=== PATIENT | female | born 1960 | race Caucasian/White ===

== ENCOUNTER 2022-07-02 00:16 | Day surgery (SDC) | payer BC, SELFPAY ==
[2022-06-18 15:15] VITALS: BMI 16.2
--- NOTE | 2022-07-01 16:37 | PM.HPGS ---
History of Present Illness History of Present Illness Consent: Risks, benefits, and alternatives have been discussed and questions answered. Patient agrees to proceed with procedure. Chief complaint: hc colon polyps Narrative: Kalina Guevara is a 62 year old female who was referred for colon cancer screening. Three years ago she had 3 polyps removed. Review of Systems Review of Systems: All systems reviewed & are unremarkable except as noted in HPI and below PMFSH Past Medical History Medical History Brain tumor (~2006) Breast cancer Colon polyps History of breast cancer in female History of malignant neoplasm metastatic to brain Osteoporosis Osteoporosis Status post gamma knife treatment (~2007) Surgical History Surgical History History of appendectomy (~2008) History of bilateral mastectomy (~2002) History of removal of Port-a-Cath (~2021) Hx of craniotomy Family History Family History Father Malignant neoplasm of prostate Hypertension Heart disease Mother Breast cancer Heart disease Social History Social History Smoking status: Never smoker Second hand tobacco smoke exposure: No Alcohol intake: current Alcohol use details: holiday's Substance use: never Substance use type: does not use Lack of Transportation: No Lack of Food: Never True Current Housing: I Have Housing Concerned About Future Housing: No Difficulty Paying Gas/Electric Bills: No Difficulty Paying for Meds: No Currently Unemployed: No Education: Bachelor's Degree Difficulty w/ Childcare or Family Care: No Living arrangements: with family Occupation/Education: occupation Additional occupation/education comments: [employer] Gender identity (if verbalized by the patient): Female Spiritual care concerns: No Agree to blood products: Yes Meds Home Medications and Allergies Home Medications Medication Instructions Recorded Confirmed Type calcium carbonate 600 mg calcium 600 mg PO BID 06/09/22 06/18/22 History (1,500 mg) tablet (Calcium) cholecalciferol (vitamin D3) 25 25 mcg PO DAILY 06/09/22 06/18/22 History mcg (1,000 unit) capsule ibandronate 150 mg tablet 150 mg PO MONTHLY 06/09/22 06/18/22 History multivitamin (Multiple Vitamins 1 tablet PO DAILY 06/09/22 06/18/22 History tablet) Allergies Allergy/AdvReac Type Severity Reaction Status Date / Time erythromycin base Allergy Diarrhea Verified 06/18/22 15:16 Exam Const: General: alert Orientation/consciousness: patient oriented x3 Resp: Auscultation: clear to auscultation bilaterally Cardio: Rhythm: regular rhythm GI: GI Palp: Yes Soft to palpation and No Tenderness to palpation present (GI) Neuro: General: patient oriented x3 Assessment and Plan Assessment and plan (1) Colon cancer screening: Code(s): Z12.11 - Encounter for screening for malignant neoplasm of colon Status: Acute Assessment and Plan: Colonoscopy with possible biopsy or polypectomy or cautery or injection of substances.
[2022-07-02 08:00] VITALS: BP 131/78; PULSE 73; RESP 16; TEMP 36.2; O2SAT 100
[2022-07-02] MEDS: LACTATED RINGERS 1,000 ML 150 ML IV CONT (08:14)
[2022-07-02 08:55] VITALS: BP 101/60; PULSE 75; RESP 21; O2SAT 100
[2022-07-02 09:05] VITALS: BP 102/63; PULSE 72; RESP 20; O2SAT 99
[2022-07-02 09:15] VITALS: BP 114/67; PULSE 65; RESP 18; O2SAT 100
== END 2022-07-02 09:29 | disposition home or self-care (01) ==
PROVIDERS: PCP Internal Medicine; Visit Provider Internal Medicine Gastroenterology
PROC: 0DJD8ZZ Inspection of Lower Intestinal Tract, Via Natural or Artificial Opening Endoscopic (ICD-10-PCS; CPT 45378; principal; 2022-07-02 09:15)
DX: Z12.11 Encounter for screening for malignant neoplasm of colon (principal); K64.8 Other hemorrhoids; Z86.010 Personal history of colon polyps; M81.0 Age-related osteoporosis without current pathological fracture; Z85.3 Personal history of malignant neoplasm of breast; Z85.841 Personal history of malignant neoplasm of brain
CPT/HCPCS: 45378; J2704; J7120

== ENCOUNTER 2022-12-31 07:26 | Outpatient (CLI) | payer BC, SELFPAY | END 2022-12-31 07:27 | disposition home or self-care (01) | LOC: ANHBWCAUD 07:28 | PROVIDERS: PCP Internal Medicine; Visit Provider Otolaryngology | DX: H90.6 Mixed conductive and sensorineural hearing loss, bilateral (principal) | CPT/HCPCS: 92557; 92567 ==

== ENCOUNTER 2023-06-11 07:30 | Outpatient (CLI) | payer BC, SELFPAY ==
--- NOTE | ~2023-06-11 | DEXA_ITS ---
Bone Density Report Name: DANIEL RODRIGUEZ Age: 63 Sex: Female Ethnicity: White Date of : 1960 Indication: postmenopausal; screening for osteoporosis; height loss; cancer; Referring Provider: LUIS FELIPE LOPEZ Study: Bone densitometry was performed. Exam Date: June 11, 2023 Accession number: [id number] Bone Density: Region BMD T-score Z-score Classification AP Spine(L1-L4) 0.733 -2.9 -1.2 Osteoporosis Femoral Neck (Left) 0.714 -1.2 0.2 Osteopenia Total Hip (Left) 0.708 -1.9 -0.8 Osteopenia Femoral Neck (Right) 0.645 -1.8 -0.4 Osteopenia Total Hip (Right) 0.682 -2.1 -1.0 Osteopenia Total Hip Mean 0.695 -2.0 -0.9 Osteopenia World Health Organization criteria for BMD impression classify patients as: Normal (T-score at or above -1.0), Osteopenia (T-score between -1.0 and -2.5), or Osteoporosis (T-score at or below -2.5). 10-year Fracture Risk: FRAX not reported because: Some T-score for Spine Total or Hip Total or Femoral Neck at or below -2.5 Clinical Information Provided by Patient: Has used the following medications: Boniva (i.e. ibandronate), Vitamin D, Calcium Has the following medical conditions: Cancer Patient maximum height was 70.0 Menopause Age: 47 No regular weight bearing exercise Drinks caffeinated beverages Onset of menses at age 13 Number of children 2 Impression: The patient has osteoporosis, based on the Total Spine T-score. Discussion: INCREASED RISK OF FRACTURE. BONE DENSITY IS UNDESIRABLY LOW AT ONE OR MORE SKELETAL SITES, CONSISTENT WITH POSTMENOPAUSAL OSTEOPOROSIS. This patient's lowest T-score meets the World Health Organization's (WHO) criteria for osteoporosis at one or more sites (T-score -2.5 or below). In untreated patients, the risk of osteoporotic fracture increases approximately two-fold for each 1.0 SD decrease in T-score. Low bone density is not the only risk factor for fracture; also consider factors such as patient's age, frailty or poor health, risk of falling, risk of injury, previous osteoporotic fracture, family history of osteoporosis, cigarette smoking, low body weight, etc. Not everyone with low bone mineral density has osteoporosis; osteomalacia and other metabolic bone disorders should also be considered. Patients who have osteoporosis should be evaluated for specific diseases and conditions (secondary causes) that may cause or contribute to bone loss. The [place] [employer] Endocrinologists (AACE) and National Osteoporosis Foundation (NOF) recommend pharmacologic intervention for all postmenopausal women whose T-score is in this range. The patient should follow a healthful lifestyle (good nutrition with adequate calcium and vitamin D, and appropriate weight-bearing exercise). Follow-Up: Consider a repeat BMD and Vertebral Fracture
== END 2023-06-11 07:31 | disposition home or self-care (01) ==
PROVIDERS: PCP Internal Medicine; Visit Provider Nurse Practitioner
DX: M81.0 Age-related osteoporosis without current pathological fracture (principal)
CPT/HCPCS: 77080

== ENCOUNTER 2023-06-24 10:46 | Outpatient (CLI) | payer BC, SELFPAY ==
[2023-06-24 14:00] LABS: Magnesium 2.1 mg/dL (1.6-2.3); Phosphorus 3.7 mg/dL (2.5-4.5)
== END 2023-06-24 10:47 | disposition home or self-care (01) ==
LOC: ANHGOSHLAB 10:47
PROVIDERS: PCP Internal Medicine; Visit Provider Nurse Practitioner
DX: M81.0 Age-related osteoporosis without current pathological fracture (principal)
CPT/HCPCS: 36415; 83735; 84100

== ENCOUNTER 2024-02-11 19:02 | Emergency (ER) | payer BC, SELFPAY ==
--- NOTE | ~2024-02-11 | XR_ITS ---
XR hip RT 2V w AP pelvis Ordering provider: Milena Price APRN History: . pain, rt leg x 1 month, no injury . Comparison: None. FINDINGS: BONES: No acute fracture or dislocation. . Healed Fractures in the right superior and inferior pubic rami are noted. HIP JOINT SPACES: Slight narrowing of the left hip joint. SACROILIAC JOINT SPACES/LUMBAR SPINE: The sacroiliac joint spaces shows osteoarthritic changes.. Mild degenerative changes of the visualized lower lumbar spine. PUBIC SYMPHYSIS: Normal. SOFT TISSUES: Normal. IMPRESSION: No acute osseous abnormality pelvis and right hip. Old healed fractures in the right. Inferior pubic rami. Reviewed, dictated and finalized at location A.
[2024-02-11 19:17] VITALS: BP 125/66; PULSE 71; RESP 16; TEMP 36.1; O2SAT 100
--- NOTE | 2024-02-11 19:31 | ED.EXTPRO ---
HPI - Extremity Problem General Chief complaint: Extremity Problem,Nontraumatic Stated complaint: Right Leg Pain Time Seen by Provider: 02/11/24 19:30 Source: patient Mode of arrival: ambulatory Limitations: no limitations History of Present Illness HPI Narrative: 63-year-old female presented for complaint of pain to the right anterior hip. Onset over one month, no specific injury, but started after kneeling on the floor for an hour. Reports at times the pain radiates to inner thigh. Pain is constant and rates 7/10. Patient works at [employer] and stands all day. She took tylenol, and one dose of ibuprofen without much relief. denies numbness, tingling or weakness. History of cancer, osteoporosis, and right hip fracture. Patient is scheduled with PCP in 1 week for this complaint. Related Data Home Medications Medication Instructions Recorded Confirmed calcium carbonate (Calcium 600) 600 mg PO BID 06/09/22 02/11/24 cholecalciferol (vitamin D3) 25 25 mcg PO DAILY 06/09/22 02/11/24 mcg (1,000 unit) capsule multivitamin (Multiple Vitamins 1 tablet PO DAILY 06/09/22 02/11/24 tablet) zoledronic acid 5 mg/100 mL in See Rx Instructions .Route .COMPLEX 02/11/24 02/11/24 mannitol 5 %-water intravenous piggybck (Reclast) Allergies Allergy/AdvReac Type Severity Reaction Status Date / Time erythromycin base Allergy Diarrhea Verified 02/11/24 19:23 Review of Systems Review of Systems: CONSTITUTIONAL: Denies body aches, fever, chills CARDIOVASCULAR: Denies chest pain, palpitations, or edema. RESPIRATORY: Denies cough or dyspnea. GASTROINTESTINAL: Denies abdominal pain, nausea, vomiting, or diarrhea. SKIN: Denies rash, itching, or wounds. MUSCULOSKELETAL: Reports right anterior hip pain NEUROLOGIC: Denies headache, numbness, tingling, or weakness. All systems reviewed & are unremarkable except as noted in HPI and below PMFSH Past Medical History Medical History Brain tumor (~2006) Breast cancer Colon polyps History of breast cancer in female History of malignant neoplasm metastatic to brain Osteoporosis Osteoporosis Status post gamma knife treatment (~2007) Surgical History Surgical History History of appendectomy (~2008) History of bilateral mastectomy (~2002) History of removal of Port-a-Cath (~2021) Hx of craniotomy Family History Family History Father Malignant neoplasm of prostate Hypertension Heart disease Mother Breast cancer Heart disease Social History Social History Social History: Caffeine-2 cups daily Smoking status: Never smoker Second hand tobacco smoke exposure: No Alcohol intake: current Alcohol use details: holiday's Substance use: never Substance use type: does not use Do You Feel Safe in your Home?: Yes Lack of Transportation: No Lack of Food: Never True Current Housing: I Have Housing Concerned About Future Housing: No Difficulty Paying Gas/Electric Bills: No Difficulty Paying for Meds: No Currently Unemployed: No Education: Bachelor's Degree Difficulty w/ Childcare or Family Care: No Living arrangements: with family Occupation/Education: occupation Additional occupation/education comments: [employer] Gender identity (if verbalized by the patient): Female Spiritual care concerns: No Agree to blood products: Yes Comments At time of signature, I have reviewed and agree with nursing past medical, surgical, social and family history unless otherwise noted. Please see nursing chart for further information. There is no relevant family history pertinent to the presenting complaint Exam Narrative: GENERAL: Well-appearing CHEST: Speaks in full sentences. No respiratory distress. HEART: Re
== END 2024-02-11 20:24 | disposition home or self-care (01) ==
PROVIDERS: Emergency Provider Nurse Practitioner Family; PCP Internal Medicine
DX: M25.551 Pain in right hip (principal); M81.0 Age-related osteoporosis without current pathological fracture; Z85.3 Personal history of malignant neoplasm of breast; Z90.13 Acquired absence of bilateral breasts and nipples; Z85.841 Personal history of malignant neoplasm of brain
CPT/HCPCS: 73502; 99213; G0463

== ENCOUNTER 2024-03-16 12:21 | Outpatient (CLI) | payer BC, SELFPAY ==
--- NOTE | ~2024-03-16 | MR_ITS ---
EXAMINATION: MR lumbar spine wo/w con DATE: 03/16/2024 13:37 INDICATION: Radiculopathy, lumbar region. TECHNIQUE: Magnetic resonance imaging (MRI) of the lumbar spine was performed without and with 11 mL MultiHance intravenous contrast. COMPARISON: None FINDINGS: Bone alignment is normal. There is mild chronic anterior wedging of T12 and L1 vertebral scott dies, likely physiologic. There is mildly decreased disc height at L5-S1. The distal spinal cord sign al intensity is normal. The conus medullaris is at L1. 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 The following di sc levels are specifically discussed: L1-L2: The disc does not extend beyond the endplate margin. There is moderate right and mild left fac et joint osteoarthritis. There is no neural foraminal stenosis. There is no central canal stenosis. L2-L3: The disc is mildly bulging. There is mild bilateral facet joint osteoarthritis. There is mild bilateral neural foraminal stenosis. There is no central canal stenosis. L3-L4: The disc is mildly bulging. There is mild bilateral facet joint osteoarthritis. There is mild bilateral neural foraminal stenosis. There is no central canal stenosis. L4-L5: The disc is mildly bulging. There is mild bilateral facet joint osteoarthritis. There is mild left neural foraminal stenosis. There is mild central canal stenosis. L5-S1: There is a central protrusion with annular fissure. There is moderate bilateral facet joint os teoarthritis. There is no neural foraminal stenosis. There is mild central canal stenosis. IMPRESSION: 1. Mild lumbar spondylosis. Reviewed, dictated and finalized at location A. IMPRESSION: 1. Mild lumbar spondylosis.
== END 2024-03-16 12:22 | disposition home or self-care (01) ==
LOC: ANHIMG 12:30
PROVIDERS: PCP Internal Medicine; Visit Provider Nurse Practitioner
DX: M47.816 Spondylosis without myelopathy or radiculopathy, lumbar region (principal); M54.16 Radiculopathy, lumbar region
CPT/HCPCS: 72158; A9577

== ENCOUNTER 2025-03-22 07:49 | Outpatient (CLI) | payer BC, SELFPAY ==
--- OUTSIDE RECORDS SUMMARY | 2025-03-22 07:53 | XMS_ITS | Encounter Summary ---
Author Organization [facility] Address [facility]ly [facility] [place] [address] Care Team Providers Care Manager Family Name Role Phone Earnest Rodriguez MD Primary Care Provider [phone] Encounter Details Date Type Department Care Team (Latest Contact Info) Description 08/02/2021 JackBet Message Enc [facility] Medical Group Multispecialty Care - [place] [address] [place] [address] [address] [place] [address] [place] [address] [place] [address] [address] [place], [place] [id number] Leatha(?) called from your office. Social History Tobacco Use Types Packs/Day Years Used Date Smoking Tobacco: Never Smokeless Tobacco: Never Comments:counseled by Dr Shaniqua mccann Alcohol Use Standard Drinks/Week Comments Never 0 (1 standard drink = 0.6 oz pur e alcohol) PHQ-2 Answer Date Recorded PHQ-2 Score - If the patient scores above 3, please move on to questions 3-9 0 07/31/2021 Comments No Sex and Gender Information Value Date Recorded Sex Assigned at Not on file Legal Sex Female 2:12 PM COMPENSATION AGENT Gender Identity Female 07/30/2021 11:15 AM COMPENSATION AGENT Sexual Orientation Choose not to disclose 2021 11:15 AM COMPENSATION AGENT COVID-19 Exposure Response Date Recorded In the last 10 days, have yo u been in contact with someone who was confirmed or suspected to have Coronavirus/COVID-19? No / Unsure 07/30/2021 10:18 AM COMPENSATION AGENT documented as of this encounter Plan of Treatment Not on file documented as of this encounter Visit Diagnoses Not on filedocumented in this encounter Additional Health Concerns Assessment Noted Time PHQ-9 Depression Total Score: 0 08/01/19 22 8:39 AM COMPENSATION AGENT documented as of this encounter Care Teams Manager Family Relationship Specialty Start Date End Date Earnest Rodriguez MD [address] [facility] [address] [place] [address] PCP - General INTERNAL MEDICINE 07/31/21 documented as of this encounter
--- OUTSIDE RECORDS SUMMARY | 2025-03-22 07:53 | XMS_ITS | Encounter Summary ---
Author Organization [facility] Address [address] [place] [address] Care Team Providers Care Wound Specialist Name Role Phone Earnest Rodriguez MD Primary Care Provider [phone] Encounter Details Date Type Department Care Team (Latest Contact Info) Description 08/03/2021 Staplest Message Enc [facility] Medical Group Multispecialty Care - [place] [address] [place] [address] [address] [place], [place] [id number] [place] [address] [place] [address] [address] [place], [place] [id number] ECHO and Bone Density procedures Social History Tobacco Use Types Packs/Day Years [...] on file Legal Sex Female 2:12 PM SETTLEMENT AGENT Gender Identity Female 07/30/2021 11:15 AM SETTLEMENT AGENT Sexual Orientation Choose not to disclose 2021 11:15 AM SETTLEMENT AGENT COVID-19 Exposure Response Date Recorded In the last 10 days, have yo u been in contact with someone who was confirmed or suspected to have Coronavirus/COVID-19? No / Unsure 07/30/2021 10:18 AM SETTLEMENT AGENT documented as of this encounter Plan of Treatment Not on file documented as of this encounter Visit Diagnoses Not on filedocumented in this encounter Additional Health Concerns Assessment Noted Time PHQ-9 Depression Total Score: 0 08/01/19 8:39 AM SETTLEMENT AGENT documented as of this encounter Care Teams Wound Specialist Relationship Specialty Start Date End Date Earnest Rodriguez MD [address] [address] PCP - General INTERNAL MEDICINE 07/31/21 documented as of this encounter
--- OUTSIDE RECORDS SUMMARY | 2025-03-22 07:53 | XMS_ITS | Encounter Summary ---
Author Organization [facility] Address [address] [place] [address] Care Team Providers Care Wait Staff Name Role Phone Earnest Rodriguez MD Primary Care Provider [phone] Encounter Details Date Type Department Care Team (Latest Contact Info) Description 08/12/2021 Gladitoodhart Message Enc [facility] Medical Group Multispecialty Care - [place] [address] [place] [address] [address] [place], [place] [id number] [place] [address] [place] [address] [address] [place], [place] [phone] Colonoscopy update Social History Tobacco Use Types Packs/Day Years [...] on file Legal Sex Female 2:12 PM GROCERY CLERK CHECKING Gender Identity Female 07/30/2021 11:15 AM GROCERY CLERK CHECKING Sexual Orientation Choose not to disclose 2021 11:15 AM GROCERY CLERK CHECKING COVID-19 Exposure Response Date Recorded In the last 10 days, have yo u been in contact with someone who was confirmed or suspected to have Coronavirus/COVID-19? No / Unsure 07/30/2021 10:18 AM GROCERY CLERK CHECKING documented as of this encounter Plan of Treatment Not on file documented as of this encounter Visit Diagnoses Not on filedocumented in this encounter Additional Health Concerns Assessment Noted Time PHQ-9 Depression Total Score: 0 08/01/19 8:39 AM GROCERY CLERK CHECKING documented as of this encounter Care Teams Wait Staff Relationship Specialty Start Date End Date Earnest Rodriguez MD [address] [facility] [address] [place] [address] PCP - General INTERNAL MEDICINE 07/31/21 documented as of this encounter
--- OUTSIDE RECORDS SUMMARY | 2025-03-22 07:54 | XMS_ITS | Encounter Summary ---
Author Organization [facility] Address [address] [place] [address] Care Team Providers Care Charging Manipulator Name Role Phone Earnest Rodriguez MD Primary Care Provider [phone] Encounter Details Date Type Department Care Team (Latest Contact Info) Description 09/02/2021 Trendalyticst Message Enc [facility] Medical Group Multispecialty Care - [place] [address] [place] [address] [address] [place], [place] [phone] [place] [address] [place] [address] [address] [place], [place] [id number] refill for ibandronate sodium 150 mg tab Social History Tobacco Use Types Packs/Day Years [...] on file Legal Sex Female 2:12 PM EVENT MARKETING INTERN Gender Identity Female 07/30/2021 11:15 AM EVENT MARKETING INTERN Sexual Orientation Choose not to disclose 2021 11:15 AM EVENT MARKETING INTERN documented as of this encounter Plan of Treatment Not on file documented as of this encounter Visit Diagnoses Not on filedocumented in this encounter Additional Health Concerns Assessment Noted Time PHQ-9 Depression Total Score: 0 08/01/19 22 8:39 AM EVENT MARKETING INTERN documented as of this encounter Care Teams Charging Manipulator Relationship Specialty Start Date End Date Earnest Rodriguez MD [address] [address] PCP - General INTERNAL MEDICINE 07/31/21 documented as of this encounter
--- OUTSIDE RECORDS SUMMARY | 2025-03-22 07:54 | XMS_ITS | Encounter Summary ---
Author Organization [facility] Address [address] [place] [address] Care Team Providers Care Landscape Specialist Name Role Phone Earnest Rodriguez MD Primary Care Provider [phone] Encounter Details Date Type Department Care Team (Late st Contact Info) Description 08/06/2021 MyChart Message Enc [facility] Medical Group Multispecialty Care - [place] [address] [place] [address] [address] [place], [place] [phone] [place] [address] [place] [address] [address] [place], [place] [id number] Gastro referral Social History Tobacco Use Types Packs/Day Years [...] on file Legal Sex Female 2:12 PM GROUP SUPERVISOR YARD Gender Identity Female 07/30/2021 11:15 AM GROUP SUPERVISOR YARD Sexual Orientation Choose not to disclose 2021 11:15 AM GROUP SUPERVISOR YARD COVID-19 Exposure Response Date Recorded In the last 10 days, have yo u been in contact with someone who was confirmed or suspected to have Coronavirus/COVID-19? No / Unsure 07/30/2021 10:18 AM GROUP SUPERVISOR YARD documented as of this encounter Plan of Treatment Not on file documented as of this encounter Visit Diagnoses Not on filedocumented in this encounter Additional Health Concerns Assessment Noted Time PHQ-9 Depression Total Score: 0 08/01/19 8:39 AM GROUP SUPERVISOR YARD documented as of this encounter Care Teams Landscape Specialist Relationship Specialty Start Date End Date Earnest Rodriguez MD [address] [facility] [address] [place] [address] PCP - General INTERNAL MEDICINE 07/31/21 documented as of this encounter
--- OUTSIDE RECORDS SUMMARY | 2025-03-22 07:54 | XMS_ITS ---
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 Status post chemo and radiation therapy. Currently in remission. Close follow-up with oncology. 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 Heart failure is improving with treatment. NYHA Class I. Continue current treatment regimen. Heart failure will be reassessed in 6 months. Her cardiac MRI showed mild LV globyal hypokinesis. She is on cardioprotective medication. She is asymptomatic at this time. Would recommend repeat MRI if she becomes symptomatic or if her biomarkers (NT PRO and Trop) trend up. Due to her implants, cardiac echo is inferior as GLS was difficult to obtain. GLS is an early indicator of LV dysfunction. Assessment & Plan (12/16/2017 9:49 AM CDT): Overall she is asymptomatic from a cardiac standpoint but she does have a dilated LV that likely represents cumulative damage from anthracycline and trastuzumab exposure. - we will start lisinopril 5mg today and check a BMP in 2 weks - we will check troponin, NTproBNP, and lipid panel today - we will check a cardiac MRI, due to limitations with TTE - she should have an EKG checked at her next appointment in [facility], for a baseline - we will plan to monitor serial biomarkers, and re-image with cardiac MRI or TTE pending changes in levels as well as symptoms Mitral valve prolapse 12/16/2017 Assessment & Plan (07/26/2018 9:53 AM PROGRAM ATTENDANT): Continues to remain asymptomatic. Repeat a cardiac MRI per above. Assessment & Plan (12/16/2017 9:49 AM CDT): We recommended that she start on aspiring 81mg daily Encounter for chemotherapy management 04/01/2017 Malignant neoplasm of right breast 03/04/2017 Cancer Staging:Clinical:Stage IV(TX, NX, M1) - Signed by Gretchen Foss MD on 11/17/2017 Assessment & Plan (07/26/2018 9:51 AM PROGRAM ATTENDANT): Continues herception every 21 days. Assessment & Plan (12/16/2017 9:49 AM CDT): She continues on trastuzumab every 3 weeks (since 2006) with no evidence of disease recurrence. Malignant neoplasm metastatic to brain 7 Current Treatment and Therapy Plans No current plan information found. Past Treatment and Therapy Plans Line Care Plan Name Start Date Discontinue Date Treatment Medications Discontinue Reason Plan Provider IV MAINTENANCE THERAPY PLAN 01/12/2019 08/04/2023 No medications scheduled. Automatic discontinuation of dormant plans Gretchen Foss MD Oncology Chemotherapy Treatment Plan Name Start Date Discontinue Date Treatment Medications Discontinue Reason Plan Provider Cycles Trastuzumab 21 Day Cycles; Transitioned to SC trastuzumab-hya luronidase-oysk C44 (Recurrent / Metastatic) - Breast 7 11/14/2020 trastuzumab (HERCEPTIN)tra stuzumab (HERCEPTIN) IVPBtrastuzuma b-hyaluronidas e-oysk (HERCEPTAN HYLECTA)trastu zumab-hyaluron idase-oysk (HERCEPTIN-HYL ECTA) Toxicity/Compl ication Gretchen Foss MD 55 of 60 cycles started Specialty Infusion Treatment Plan Name Start Date Discontinue Date Treatment Medications Discontinue Reason Plan Provider IV MAINTENANCE THERAPY PLAN 11/18/2017 04/01/2023 No medications scheduled. Automatic discontinuation of dormant plans Gretchen Foss MD Lifetime Dose Tracking * Chemical Lifetime Dose Automatic Entry Manual Entr y Fluoro Time 0.9 minutes 0.9 minutes 0 minutes Air kerma at the reference point (Ka,r) 1 mGy 1 mGy 0 mGy DLP 439 mGycm 439 mGycm 0 mGycm Resolved Problems Problem Noted Date Diagnosed Date Resolved Date Breast cancer 07/31/2021 05/31/2024 Overview (07/22/2023): Last Assessment & Plan: -History of breast cancer status post bilateral mastectomy. Stage IV (TX, NX, M1). - Currently in remission. Status post therapy done in 2002; currently has breast implants. No changes to the breast at this time. Will be following up with oncology. Malignant neoplasm metastatic to brain 08/31/2018 05/31/2024
--- OUTSIDE RECORDS SUMMARY | 2025-03-22 07:54 | XMS_ITS | Clinical Summary ---
Author Organization [facility] Address [address] Osorio: Katerine Prelude ADT JOSIE GARCIA [address] Care Team Providers Care Metrology Technician Name Role Phone Unavailable Primary Care Provider Unavailabl e Allergies Active Allergy Reactions Criticality Noted Date Comments Erythromycin Unknown 10/06/2021 Medications ibandronate (BONIVA) 150 mg tablet TAKE ONE TABLET BY MOUTH ONCE A MONTH WITH 8 OZ OF WATER. TAKE 60 MINUTES BEFORE ANY OTHER MEDICATION OR FOOD IN AN UPRIGHT POSITION. 1 Tablet 6 06/12/2022 3:18 PM ELEVATOR ERECTOR 2 Active ibandronate (BONIVA) 150 mg tablet TAKE ONE TABLET BY MOUTH ONCE A MONTH. TAKE WITH 8 OZ OF WATER 60 MINUTES BEFORE ANY OTHER MEDICATION OR FOOD. TAKE WHILE IN AN UPRIGHT POSITION. 1 Tablet 6 02/12/2022 12:41 PM CDT 2 Active amoxicillin (AMOXIL) 875 mg tablet Take 1 tablet (875 mg total) by mouth 2 (two) times a day for 7 days 14 Tablet 07/18/2022 4:25 PM ELEVATOR ERECTOR 3 Active ofloxacin (FLOXIN) 0.3 % Drops Administer 5 drops into each ear 2 (two) times a day for 7 days. 10 mL 07/22/2023 2:23 PM ELEVATOR ERECTOR 4 Active methylPREDNISol one (MEDROL DOSPACK) 4 mg Tablets, Dose Pack TAKE DIRECTED ON PACKAGE. 21 Each 02/17/2024 9:35 AM CDT 4 Active cyclobenzaprine (FLEXERIL) 10 mg tablet Take 1 Tablet (10 mg) by mouth 2 times daily as needed for muscle spasms. 20 Tablet 4 Active Encounters Date Type Department Care Team Description 01/31/2025 External Device Data [facility] ABSTRACTION Provider, Abstract 12/28/2024 External Device Data [facility] ABSTRACTION Provider, Abstract from Last 3 Months Immunizations Immunization Administration Dates Next Due INFLUENZA VACCINE QUADRIVALENT 6 MOS UP PF IM Social History Tobacco Use Types Packs/Day Years Used Date Smoking Tobacco: Never Assessed Comments Unknown Sex and Gender Information Value Date Recorded Sex Assigned at Not on file Legal Sex Female 3:27 PM CDT Gender Identity Not on file Sexual Orientation Not on file Plan of Treatment Health Maintenance Due Date Last Done Comments DTAP/TDAP/TD VACCINES (1 - Tdap) 1979 HPV/Cotest (21-29) 1981 CERVICAL CANCER SCREENING 1990 HPV/Cotest (30-65) 1990 PAP SMEAR 1990 BREAST CANCER SCREENING 2000 COLORECTAL SCREENING 2005 Colorectal Cancer Screening 2005 FIT-DNA Q 3 years 2005 FIT/FOBT Q 1 year 2005 Flex Sig/CT Colonography Q 5 years 2005 ZOSTER VACCINE (1 of 2) 2010 INFLUENZA VACCINE (#1) 2024 02/19/2023 RSV VACCINE (60+ or ) (1 - 1-dose 75+ series) 2035 Insurance RX [facility] [employer] (INTERNAL) [facility]
--- OUTSIDE RECORDS SUMMARY | 2025-03-22 07:54 | XMS_ITS | Encounter Summary ---
Author Organization [facility] Address [address] [place] [address] Phone Care Team Providers Care Derrick Follower Name Role Phone Flavio Munson DO Primary Care Provider Encounter Details Date Type Department Care Team (Late st Contact Info) Description 01/30/2025 Results Follow-Up [facility] [address] [place] [address] Evelyn Santana MD [address] [place], [place] [id number] Phosphorus, Comprehensive metabolic panel, Vitamin D 25 hydroxy, eGFR Social History Tobacco Use Types Packs/Day Years Used Date Smoking Tobacco: Never Passive Smoke Exposure: Past Smokeless Tobacco: Never Alcohol Use Standard Drinks/Week Comments Never 0 (1 standard drink = 0.6 oz pur e alcohol) AUDIT-C Answer Date Recorded Q1: How often do you have a drink containing alc ohol? Never 05/30/2020 Average Number of Drinks Not on file 021 Frequency of Binge Drinking Not on file 10/2020 Comments No Sex and Gender Information Value Date Recorded Sex Assigned at Not on file Legal Sex Female 10:07 AM BUILDINGS AND GROUNDS SUPERINTENDENT Gender Identity Not on file Sexual Orientation Not on file documented as of this encounter Plan of Treatment Not on file documented as of this encounter Visit Diagnoses Not on filedocumented in this encounter Care Teams Derrick Follower Relationship Specialty Start Date End Date Flavio Munson DO PCP - General Internal Medicine 08/31/23 documented as of this encounter
--- OUTSIDE RECORDS SUMMARY | 2025-03-22 07:54 | XMS_ITS | Encounter Summary ---
Author Organization [facility] Address [address] [place] [address] Care Team Providers Care Theology Teacher Name Role Phone Earnest Rodriguez MD Primary Care Provider [phone] Encounter Details Date Type Department Care Team (Latest Contact Info) Description 09/06/2021 NextVRt Message Enc [facility] - [place] [address] [place] [address] [address] [place], [place] [id number] [place] [address] [place] [address] [address] [place], [place] [id number] hemo-cyte and boniva Social History Tobacco Use Types Packs/Day Years [...] on file Legal Sex Female 2:12 PM XRAY TECH Gender Identity Female 07/30/2021 11:15 AM XRAY TECH Sexual Orientation Choose not to disclose 2021 11:15 AM XRAY TECH documented as of this encounter Plan of Treatment Not on file documented as of this encounter Visit Diagnoses Not on filedocumented in this encounter Additional Health Concerns Assessment Noted Time PHQ-9 Depression Total Score: 0 08/01/19 22 8:39 AM XRAY TECH documented as of this encounter Care Teams Theology Teacher Relationship Specialty Start Date End Date Earnest Rodriguez MD [address] [facility] [address] [place] [address] PCP - General INTERNAL MEDICINE 07/31/21 documented as of this encounter
--- OUTSIDE RECORDS SUMMARY | 2025-03-22 07:54 | XMS_ITS | Encounter Summary ---
Author Organization [facility] Address [address] [place] [address] Care Team Providers Care Regional Psychiatric Director Name Role Phone Earnest Rodriguez MD Primary Care Provider [phone] Encounter Details Date Type Department Care Team (Latest Contact Info) Description 08/18/2021 Guang Lian Shi Dait Message Enc [facility] Multispecial[facility] - [place] [address] [place] [address] [address] [place] [address] [place] [address] [place] [address] [address] [place], [place] [id number] Updating you on many things... Social History Tobacco Use Types Packs/Day Years [...] on file Legal Sex Female 2:12 PM MEDICAL RECORD CODER Gender Identity Female 07/30/2021 11:15 AM MEDICAL RECORD CODER Sexual Orientation Choose not to disclose 2021 11:15 AM MEDICAL RECORD CODER COVID-19 Exposure Response Date Recorded In the last 10 days, have yo u been in contact with someone who was confirmed or suspected to have Coronavirus/COVID-19? No / Unsure 07/30/2021 10:18 AM MEDICAL RECORD CODER documented as of this encounter Plan of Treatment Not on file documented as of this encounter Visit Diagnoses Not on filedocumented in this encounter Additional Health Concerns Assessment Noted Time PHQ-9 Depression Total Score: 0 08/01/19 22 8:39 AM MEDICAL RECORD CODER documented as of this encounter Care Teams Regional Psychiatric Director Relationship Specialty Start Date End Date Earnest Rodriguez MD [address] [address] PCP - General INTERNAL MEDICINE 07/31/21 documented as of this encounter
--- OUTSIDE RECORDS SUMMARY | 2025-03-22 07:54 | XMS_ITS | Encounter Summary ---
Author Organization [facility] Address [address] [place] [address] Care Team Providers Care Semiconductor Dies Loader Name Role Phone Earnest Rodriguez MD Primary Care Provider [phone] Encounter Details Date Type Department Care Team (Latest Contact Info) Description 08/23/2021 Bruin Brake Cableshart Message Enc [facility] Multispecialty Care - [place] [address] [place] [address] [address] [place], [place] [phone] [place] [address] [place] [address] [address] [place], [place] [phone] second booster shot Social History Tobacco Use Types Packs/Day Years [...] on file Legal Sex Female 2:12 PM FLARER Gender Identity Female 07/30/2021 11:15 AM FLARER Sexual Orientation Choose not to disclose 2021 11:15 AM FLARER COVID-19 Exposure Response Date Recorded In the last 10 days, have yo u been in contact with someone who was confirmed or suspected to have Coronavirus/COVID-19? No / Unsure 07/30/2021 10:18 AM FLARER documented as of this encounter Plan of Treatment Not on file documented as of this encounter Visit Diagnoses Not on filedocumented in this encounter Additional Health Concerns Assessment Noted Time PHQ-9 Depression Total Score: 0 08/01/19 8:39 AM FLARER documented as of this encounter Care Teams Semiconductor Dies Loader Relationship Specialty Start Date End Date Earnest Rodriguez MD [address] [facility] [address] [place] [address] PCP - General INTERNAL MEDICINE 07/31/21 documented as of this encounter
--- OUTSIDE RECORDS SUMMARY | 2025-03-22 07:54 | XMS_ITS | Clinical Summary ---
Author Organization [facility] Address [facility] [place] [address] Care Team Providers Care Human Geography Instructor Name Role Phone Earnest Rodriguez MD Primary Care Provider [phone] Allergies Active Allergy Reactions Criticality Noted Date Comments Erythromycin Diarrhea,GI Upset Low 08/24/1999 Medications Multiple Vitamins-Mineral s (DAILY MULTI VITAMIN/MINERALS OR) 7 Active ibandronate 150 MG tabletIndication s:Age-related osteoporosis without current pathological fracture ibandronate 150 mg tablet TAKE ONE TABLET BY MOUTH ONCE A MONTH. Take with 8 oz of water 60 minutes before any other medication or food in an upright position. 1 tablet 6 2 Active vitamin D3, cholecalciferol, (VITAMIN D) 1000 UNIT Tab tabletIndication s:Age-related osteoporosis without current pathological fracture,Osteope alfredo of necks of both femurs Take 2 tablets (2,000 Units total) by mouth daily. 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 Status post chemo and radiation therapy. Currently in remission. Close follow-up with oncology. Breast cancer 07/31/2021 Assessment & Plan (07/31/2021 1:47 PM REPEATER OPERATOR): -History of breast cancer status post bilateral mastectomy. Stage IV (TX, NX, M1). - Currently in remission. Status post therapy done in 2002; currently has breast implants. No changes to the breast at this time. Will be following up with oncology. Fracture of right superior r im of pubis with routine healing 06/20/2019 Mixed hearing loss, bilateral 02/04/2019 Perforation of both tympanic membranes 9 Cardiomyopathy 12/16/2017 Assessment & Plan (07/31/2021 1:45 PM REPEATER OPERATOR): appears euvolemic. No longer on irbesartan per patient. Getting an echocardiogram but obviously would benefit from a cardiac MRI for which patient will get done with oncology at her next appointment. Mitral valve prolapse 12/16/2017 Overview (07/31/2021): Last Assessment & Plan: Continues to remain asymptomatic. Repeat a cardiac MRI per above. Immunizations Immunization Administration Dates Next Due PFIZER COVID-19 (ORIGINAL FO RMULATION, PURPLE CAP) mRNA, LNP-S, PF, 30 MCG/0.3 ML DOSE 08/21/2021 Pneumococcal (Pneumovax 23) 11/13/2021 Tdap (Adacel) 10/30/2021 Family History Medical History Relation Comments Cancer Father Prostate Cancer Mother breast Relation Status Comments Father Mother Social History Tobacco Use Types Packs/Day Years Used Date Smoking Tobacco: Never Smokeless Tobacco: Never Tobacco Cessation:Counseling Given: Yes Comments:counseled by Dr Rodriguez Alcohol Use Standard Drinks/Week Comments Never 0 (1 standard drink = 0.6 oz pur e alcohol) PHQ-2 Answer Date Recorded PHQ-2 Score - If the patient scores above 3, please move on to questions 3-9 0 07/31/2021 Comments No Sex and Gender Information Value Date Recorded Sex Assigned at Not on file Legal Sex Female 2:12 PM REPEATER OPERATOR Gender Identity Female 07/30/2021 11:15 AM REPEATER OPERATOR Sexual Orientation Choose not to disclose 2021 11:15 AM REPEATER OPERATOR Last Filed Vital Signs Vital Sign Reading Time Taken Comments Blood Pressure 120/68 12/13/2021 10:03 AM CDT Pulse 67 12/13/2021 10:03 AM CDT Temperature 36.3 C (97.4 F) 12/13/2021 10:03 AM CDT Respiratory Rate 18 12/13/2021 10:0 3 AM CDT Oxygen Saturation 99% 12/13/2021 10: 03 AM CDT Inhaled Oxygen Concentration - - Weight 49.8 kg (109 lb 12.8 oz) 022 10:03 AM CDT Height 176.5 cm (5' 9.5) 12/13/2021 10 :03 AM CDT Body Mass Index 15.98 12/13/2021 10:03 AM CDT Plan of Treatment Health Maintenance Due Date Last Done Comments Zoster Vaccines (1 of 2) 2010 RSV Immunization or 60+ Years (1 - Risk 60-74 years 1-dose series) 2020 Annual Physical 07/31/2022 07/31/2021 Pneumococcal Vaccine: 50+ Years (2 of 2 - PCV) 11/13/2022 11/13/2021 PHQ-2 (Physician [place]) 05/25/2024 Cervical Cancer Screening Pap Smear (Age 30 to 64) Every 3 Years 11/13/2024 11/13/2021 COVID-19 Vaccine ( season) 2025 03/11/2023, 08/21/2021, 03/19/2021, Additional history exists Influenza Adult (#1) 2025 02/19/2023, 02/08/2020, 03/01/2019 Cervical Cancer Screening Pap with HPV Testing (Age 30 to 64) Every 5 Years 11/13/2026 11/13/2021 Cervical Cancer Screening with HPV 11/13/2026 Colorectal Cancer Screening Colonoscopy (10 Years) 06/23/2028 06/23/2018 DTaP, Tdap and Td Vaccines (2 - Td or Tdap) 10/31/2031 10/30/2021 Hepatitis C Completed 07/31/2021 Hepatitis A Vaccines Aged Out No long er eligible based on patient's age to complete this topic Meningococcal B Vaccine Aged Out No l onger eligible based on patient's age to complete this topic Meningococcal Vaccine Aged Out No bryan elo eligible based on patient's age to complete this topic RSV Immunizations Under 20 Months Aged Out No longer eligible based on patient's age to complete this topic Procedures Procedure Name Priority Date/Time Associated Diagnosis Comments HUMAN PAPILLOMAVIRUS, HIGH-RISK TYPES Routine 11/13/2021 12:00 PM CDT CYTOPATH CERV/VAG THIN LAYER Routine 11/13/2021 8:42 AM CDT HEPATITIS C ANTIBODY Routine 07/31/2021 8:56 AM REPEATER OPERATOR Annual physical exam Encounter for medical examination to establish care General medical exam Encounter for hepatitis C screening test for low risk patient COLONOSCOPY GENERIC (SCAN ORDER) 06/23/2018 from Last 3 Months or Most Recently Relevant to Health Maintenance Results * HUMAN PAPILLOMAVIRUS, HIGH-RISK TYPES (11/13/2021 12:00 PM CDT) SPEC DESCRIPTION CERVICAL/END OCERVICAL 11/14/2021 8:[address] [facility] HPV DNA HIGH RISK NEGATIVE NEGATIVE 11/15/2021 2:[address] [facility] Comment:SEE CYTOLOGY REPORT 11/13/2021 12:0 0 PM CDT Earnest Rodriguez MD PATHOLOGY/CYTOLOGY ORDERABLES Fi nal Result [facility] [address] [place] [address], * Cytopath Cerv/Vag Thin Layer (11/13/2021 8:42 AM CDT) THIN PREP PAP [facility] [address] [place] [address] Department of Pathology Pathology Report CERVICAL/VAGINAL PAP SMEAR REPORT Name: DANIEL GUEVARA Daniel Age: 11 1960 (Age: 61) Location: [facility] Sex: F Collected Date: 11/13/2021 Hospital #: [id number] Date Received: 11/14/2021 Date Reported: 11/21/2021 Provider: EARNEST RODRIGUEZ MD INTERPRETATION CERVICAL/ENDOCERVI LOVE: SATISFACTORY FOR EVALUATION. ENDOCERVICAL/TRANS FORMATION ZONE COMPONENT PRESENT. NEGATIVE FOR INTRAEPITHELIAL LESION OR MALIGNANCY. MILD ATROPHY. NEGATIVE FOR HIGH RISK HPV. The FDA approved Aptima HPV assay is an in vitro nucleic acid amplification test for the qualitative detection of E6/E7 viral messenger RNA (mRNA) from 14 high-risk types of human papillomavirus (HPV) in cervical specimens. The high-risk HPV types detected by the assay include: 16,18,31,33,35,39, 45,51,52,56,58,59, 66, and 68. Electronically Signed Out By FLOWER Corado (ASCP) CLINICAL HISTORY Z12.4 SCREENING PAP TEST ThinPrep Pap Test with HR HPV testing in patient > 30 years requested. Menstrual Status: Post-Menopausal SPECIMEN SUBMITTED CERVICAL/ENDOCERVI LOVE Specimen Received:1 Thin Prep Vial, Image Assisted Pap (SMD) Please note: The Pap smear is not a diagnostic test. It is a screening test. Negative results on combined screening (Pap test and HPV-DNA) have a high negative predictive value (99.1-100 percent) for cervical cancer. The pap test is not effective in detecting cervical adenocarcinoma. [facility] 11/13/2021 8:42 AM CDT 11/14/2021 8:42 AM CDT Comment:CERVICAL/ENDOCERVICA L us Earnest Rodriguez MD PATHOLOGY/CYTOLOGY ORDERABLES Fi nal Result [facility] [address] [place] [address], * HEPATITIS C ANTIBODY (07/31/2021 8:56 AM REPEATER OPERATOR) HEPATITIS C AB NON-REACTI VE NON-REACT KODY 07/31/2021 6:30 PM REPEATER OPERATOR [facility] Comment: ANTIBODIES TO HCV NOT DETECTED. DOES NOT EXCLUDE THE POSSIBILITY OF EXPOSURE TO HCV. 07/31/2021 8:56 AM REPEATER OPERATOR Earnest Rodriguez MD LABORATORY Final Result [facility] [address] [place] [address], [id number] * COLONOSCOPY GENERIC (06/23/2018) 06/23/2018 Narrative 06/23/2018 Ordered by an unspecified provider. Documents Scanned SCANNING Final Result from Last 3 Months or Most Recently Relevant to Health Maintenance Insurance [facility] Care Teams Human Geography Instructor Relationship Specialty Start Date End Date Earnest Rodriguez MD [address] [facility] [address] [place] [address] PCP - General INTERNAL MEDICINE 07/31/21
--- OUTSIDE RECORDS SUMMARY | 2025-03-22 07:54 | XMS_ITS | Encounter Summary ---
Author Organization [facility] Address [address] [place] [id number] Care Team Providers Care Energy Projects Lead Name Role Phone Earnest Rodriguez MD Primary Care Provider [phone] Encounter Details Date Type Department Care Team (Latest Contact Info) Description 09/11/2021 [employer]t Message Enc [facility] Multispecialty Care [place] [address] [place] [address] [address] [place] [address] [place] [address] [place] [address] [address] [place] [address] cardiac appointment rescheduled Social History Tobacco Use Types Packs/Day Years [...] on file Legal Sex Female 2:12 PM CONGRESSIONAL DISTRICT AIDE Gender Identity Female 07/30/2021 11:15 AM CONGRESSIONAL DISTRICT AIDE Sexual Orientation Choose not to disclose 2021 11:15 AM CONGRESSIONAL DISTRICT AIDE documented as of this encounter Plan of Treatment Not on file documented as of this encounter Visit Diagnoses Not on filedocumented in this encounter Additional Health Concerns Assessment Noted Time PHQ-9 Depression Total Score: 0 08/01/19 22 8:39 AM CONGRESSIONAL DISTRICT AIDE documented as of this encounter Care Teams Energy Projects Lead Relationship Specialty Start Date End Date Earnest Rodriguez MD [address] [address] PCP - General INTERNAL MEDICINE 07/31/21 documented as of this encounter
--- OUTSIDE RECORDS SUMMARY | 2025-03-22 07:54 | XMS_ITS | Encounter Summary ---
Author Organization [facility] Address [address] [place] [address] Care Team Providers Care Manager Pricing Name Role Phone Earnest Rodriguez MD Primary Care Provider [phone] Encounter Details Date Type Department Care Team (Latest Contact Info) Description 10/01/2021 Priori Datat Message Enc [facility] Medical [facility] Multispecialty Care - [place] [address] [place] [address] [address] [place] [address] [place] [address] [place] [address] [address] [place], [place] [id number] Possible change to insurance Social History Tobacco Use Types Packs/Day Years [...] on file Legal Sex Female 2:12 PM GATHERING WORKER Gender Identity Female 07/30/2021 11:15 AM GATHERING WORKER Sexual Orientation Choose not to disclose 2021 11:15 AM GATHERING WORKER documented as of this encounter Plan of Treatment Not on file documented as of this encounter Visit Diagnoses Not on filedocumented in this encounter Additional Health Concerns Assessment Noted Time PHQ-9 Depression Total Score: 0 08/01/19 22 8:39 AM GATHERING WORKER documented as of this encounter Care Teams Manager Pricing Relationship Specialty Start Date End Date Earnest Rodriguez MD [address] [address] PCP - General INTERNAL MEDICINE 07/31/21 documented as of this encounter
--- OUTSIDE RECORDS SUMMARY | 2025-03-22 07:55 | XMS_ITS | Clinical Summary ---
Author Organization [facility] Address [address] [place] [address] Care Team Providers Care Kiln Door Repairer Name Role Phone Flavio Munson DO Primary Care Provider Allergies Active Allergy Reactions Criticality Noted Date Comments Azithromycin Stomach upset Low 06/08/2024 Erythromycin Diarrhea Low Medications multivitamin tabletIndication s:Vitamin Deficiency Prevention Active cholecalciferol (VITAMIN D-3) 2000 unit tablet Take 1 tablet (2,000 Units total) by mouth daily 10/30/2021 Active calcium carbonate (Calcium 600) 1,500 mg (600 mg elemental) tablet 11/18/2011 Active denosumab (PROLIA) 60 mg/mL syringe Inject 1 mL (60 mg total) under the skin every 6 (six) months Active Active Problems Problem Noted Date Diagnosed [...] 12/16/2017 Assessment & Plan (07/26/2018 9:53 AM CRIME SCENE PHOTOGRAPHER): 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 Heart [...] EKG checked at her next appointment in [facility], for a baseline - we will plan to monitor serial biomarkers, and re-image with cardiac MRI or TTE pending changes in levels as well as symptoms Mitral valve prolapse 12/16/2017 Assessment & Plan (07/26/2018 9:53 AM CRIME SCENE PHOTOGRAPHER): Continues to remain asymptomatic. Repeat a cardiac MRI per above. Assessment & Plan (12/16/2017 9:49 AM CDT): We recommended that she start on aspiring 81mg daily Encounter for chemotherapy management 04/01/2017 Malignant neoplasm of right breast 03/04/2017 Cancer Staging:Clinical:Stage IV(TX, NX, M1) - Signed by Gretchen Foss MD on 11/17/2017 Assessment & Plan (07/26/2018 9:51 AM CRIME SCENE PHOTOGRAPHER): Continues herception every 21 days. Assessment & Plan (12/16/2017 9:49 AM CDT): She continues on trastuzumab every 3 weeks (since 2006) with no evidence of disease recurrence. Malignant neoplasm metastatic to brain 7 Resolved Problems Problem Noted Date Diagnosed Date [...] Malignant neoplasm metastatic to brain 08/31/2018 05/31/2024 Encounters Date Type Department Care Team Description 02/07/2025 Orders Only [facility] [address] [place] [address] [address] [place] [address] ProviderAugustine MD 01/31/2025 Orders Only [address] [place] [address] Provider, MD Augustine 01/30/2025 Results Follow-Up [address] [place] [address] Evelyn Santana MD Phosphorus, Comprehensive metabolic panel, Vitamin D 25 hydroxy, eGFR 01/25/2025 2:10 PM CDT Lab [facility] [address] [place] [address] Age-related osteoporosis without current pathological fracture; Malignant neoplasm metastatic to brain (HCC); Malignant neoplasm of right female breast, unspecified estrogen receptor status, unspecified site of breast (HCC) 01/25/2025 2:07 PM CDT - 01/25/2025 11:59 PM CDT Hospital Encounter [facility] Radiology at [address] [address] Age-related osteoporosis without current pathological fracture; Malignant neoplasm metastatic to brain (HCC); Malignant neoplasm of right female breast, unspecified estrogen receptor status, unspecified site of breast (HCC); Back pain, unspecified back location, unspecified back pain laterality, unspecified chronicity Discharge Disposition: Discharge to home or self care 01/25/2025 12:40 PM CDT Office Visit [facility] [address] [facility] [address] [place] [address] Evelyn Santana MD Age-related osteoporosis without current pathological fracture (Primary Dx); Malignant neoplasm metastatic to brain (HCC); Malignant neoplasm of right female breast, unspecified estrogen receptor status, unspecified site of breast (HCC); Back pain, unspecified back location, unspecified back pain laterality, unspecified chronicity 01/25/2025 12:10 PM CDT Clinical Support [facility] [address] [facility] [address] [place] [phone] Age-related osteoporosis without current pathological fracture 01/25/2025 Telephone [facility] 10 [facility] Medical Office Building [address] [place] [address] Evelyn Santana MD 01/20/2025 Telephone [facility] [address] [facility] Office Building [address] [place] [address] Evelyn Santana MD 01/05/2025 Orders Only [facility] Scanning, Provider 01/05/2025 Results Follow-Up [facility] [address] [facility] [address] [place] [phone] Tata Anderson NP Lipid panel, Specimen Status Report 01/04/2025 Orders Only [facility] [address] [facility] Medical Office Building [address] [place] [address] Tata Anderson NP from Last 3 Months Immunizations Immunization Administration Dates Next Due Influenza, Quadrivalent, Miley l Culture-based MDCK, Preservative Free, Antibiotic Free, Intramuscular 02/08/2020 Influenza, Quadrivalent, Spl it, Preservative Free, Intramuscular 02/19/2023,03/01/2019 Influenza, Unspecified 01/23/2023 Atonarp (J&J) SARS-CoV-2 Vaccination 07/31/2020 Pfizer SARS-CoV-2 Monovalent Vaccination (12+ Yrs) PURPLE 08/21/2021 Pneumococcal Polysaccharide PPV23 11/13/2021 Tdap 10/30/2021 Surgical History Surgery Date Site/Laterality Comments CENTRAL LINE REPOSITION 11/27/2015 N/A PORT REMOVAL 12/19/2020 N/A APPENDECTOMY September 2008 BRAIN SURGERY August 2006 BREAST SURGERY June 2002 Medical History Medical History Date Comments Breast cancer (HCC) HL (hearing loss) Osteoporosis Family History Medical History Relation Name Comments Heart disease Father Flavio Burch Hypertension Father Flavio Burch Cancer Mother Dominique Burch Heart disease Mother Dominique Burch Osteoporosis Mother Dominique Burch Prostate cancer Other 1 Family histo ry of malignant neoplasm of prostate - (Added by TW Conv) Breast cancer Other 2 Family history of malignant neoplasm of breast - (Added by TW Conv) Stroke Other 3 Family history of cerebrovascular accident (CVA) - (Added by TW Conv) Osteoporosis Sister Abiola Wallace Relation Name Status Comments Father Flavio Burch Mother Dominique Burch Other 1 Other 2 Other 3 Sister Abiola Wallace Alive Social History Tobacco Use Types Packs/Day Years Used Date Smoking Tobacco: Never Passive Smoke Exposure: Past Smokeless Tobacco: Never Tobacco Cessation:Counseling Given: Not Answered Alcohol Use Standard Drinks/Week Comments Never 0 [...] on file Legal Sex Female 10:07 AM CRIME SCENE PHOTOGRAPHER Gender Identity Not on file Sexual Orientation Not on file Obstetrics History Last Filed Vital Signs Vital Sign Reading Time Taken Comments Blood Pressure 114/63 11/24/2024 8:35 AM CDT Pulse 69 11/24/2024 8:35 AM CDT Temperature 36.4 C (97.6 F) 11/24/2024 8:35 AM CDT Respiratory Rate 14 06/08/2024 10:57 AM CRIME SCENE PHOTOGRAPHER Oxygen Saturation 98% 11/24/2024 8:35 AM CDT Inhaled Oxygen Concentration - - Weight 52.4 kg (115 lb 9.6 oz) 01/25/2025 12:36 PM CDT Height 171.7 cm (5' 7.6) 01/25/2025 12:36 PM CD T Body Mass Index 17.79 01/25/2025 12:36 PM CDT Plan of Treatment Health Maintenance Due Date Last Done Comments Breast Cancer Screening-Mammogram 1960 Colon Cancer Screening-Colonoscopy 1960 Depression Screening 1960 Hepatitis C Screening 1960 Hepatitis B Screening 1978 Regular Well Visit/Exam 18-64 1978 Zoster Vaccine (1 of 2) 1979 Cervical Cancer Screening 11/13/2022 11/13/2021 Pneumococcal vaccine <65 (2 of 2 - PCV) 11/13/2022 11/13/2021 Covid-19 Vaccine (5 - 2024-2 6 season) 2025 03/11/2023, 08/21/2021, 03/19/2021, Additional history exists Influenza Vaccine (#1) 2025 , 01/23/2023, 02/08/2020, Additional history exists DTaP/Tdap/Td Vaccine (2 - Td or Tdap) 10/31/2031 10/30/2021 Procedures Procedure Name Priority Date/Time Associated Diagnosis Comments XR SPINE THORACIC 2 VIEWS Schedule Routine, Read Routine (OP Routine) 01/25/2025 2:15 PM CDT Age-related osteoporosis without current pathological fracture Malignant neoplasm metastatic to brain (HCC) Malignant neoplasm of right female breast, unspecified estrogen receptor status, unspecified site of breast (HCC) Back pain, unspecified back location, unspecified back pain laterality, unspecified chronicity XR SPINE LUMBAR 2 OR 3 VIEWS Schedule Routine, Read Routine (OP Routine) 01/25/2025 2:15 PM CDT Age-related osteoporosis without current pathological fracture Malignant neoplasm metastatic to brain (HCC) Malignant neoplasm of right female breast, unspecified estrogen receptor status, unspecified site of breast (HCC) Back pain, unspecified back location, unspecified back pain laterality, unspecified chronicity EGFR Routine 01/25/2025 2:07 PM CDT Age-related osteoporosis without current pathological fracture Malignant neoplasm metastatic to brain (HCC) Malignant neoplasm of right female breast, unspecified estrogen receptor status, unspecified site of breast (HCC) VITAMIN D 25 HYDROXY Routine 01/25/2025 2:07 PM CDT Age-related osteoporosis without current pathological fracture Malignant neoplasm metastatic to brain (HCC) Malignant neoplasm of right female breast, unspecified estrogen receptor status, unspecified site of breast (HCC) COMPREHENSIVE METABOLIC PANEL Routine 01/25/2025 2:07 PM CDT Age-related osteoporosis without current pathological fracture Malignant neoplasm metastatic to brain (HCC) Malignant neoplasm of right female breast, unspecified estrogen receptor status, unspecified site of breast (HCC) PHOSPHORUS Routine 01/25/2025 2:07 PM CDT Age-related osteoporosis without current pathological fracture Malignant neoplasm metastatic to brain (HCC) Malignant neoplasm of right female breast, unspecified estrogen receptor status, unspecified site of breast (HCC) DEXA TBS AXIAL SKELETON BONE DENSITY 1 OR MORE SITES Schedule Routine, Read Routine (OP Routine) 01/25/2025 12:09 PM CDT Age-related osteoporosis without current pathological fracture SCAN - LABS 01/05/2025 SPECIMEN STATUS REPORT Routine 01/04/2025 8:10 AM CDT LIPID PANEL Routine 01/04/2025 8:10 AM CDT from Last 3 Months Results * XR Spine Lumbar 2 or 3 Views (01/25/2025 2:15 PM CDT) Anatomical Region Laterality Modality Spine N/A Computed Radiogr aphy 01/25/2025 3:37 PM CDT Impressions 01/25/2025 4:33 PM CDT 1. No acute compression deformities. 2. Levoscoliosis of the thoracolumbar spine with mild thoracic degenerative disc disease. Dictated by: Prince Orta M.D. The radiology attending physician has personally reviewed this study, and had reviewed and/or edited this written report and agrees with it. Electronically signed by: Diya Russ MD Narrative 01/25/2025 4:33 PM CDT EXAMINATION: XR SPINE LUMBAR 2 OR 3 VIEWS, XR SPINE THORACIC 2 VIEWS HISTORY: Osteoporosis FINDINGS: 2 views of the lumbar spine and 2 views of the thoracic spine are provided for interpretation with comparison made to radiographs dated 06/10/2019. Levoscoliosis of the thoracolumbar spine. No acute compression deformities. Mild degenerative disc disease. No significant spondylolisthesis. Procedure Note Diya Russ MD - 01/25/2025 EXAMINATION: XR SPINE LUMBAR 2 OR 3 VIEWS, XR SPINE THORACIC 2 VIEWS HISTORY: Osteoporosis FINDINGS: 2 views of the lumbar spine and 2 views of the thoracic spine are provided for interpretation with comparison made to radiographs dated 06/10/2019. Levoscoliosis of the thoracolumbar spine. No acute compression deformities. Mild degenerative disc disease. No significant spondylolisthesis. IMPRESSION: 1. No acute compression deformities. 2. Levoscoliosis of the thoracolumbar spine with mild thoracic degenerative disc disease. Dictated by: Prince Orta M.D. The radiology attending physician has personally reviewed this study, and had reviewed and/or edited this written report and agrees with it. Electronically signed by: Diya Russ MD Evelyn Santana MD IMG XR PROCEDURES Final Re sult * XR Spine Thoracic 2 Views (01/25/2025 2:15 PM CDT) Anatomical Region Laterality Modality Spine N/A Computed Radiogr aphy 01/25/2025 3:37 PM CDT Impressions 01/25/2025 4:33 PM CDT 1. No acute compression deformities. 2. Levoscoliosis of the thoracolumbar spine with mild thoracic degenerative disc disease. Dictated by: Prince Orta M.D. The radiology attending physician has personally reviewed this study, and had reviewed and/or edited this written report and agrees with it. Electronically signed by: Diya Russ MD Narrative 01/25/2025 4:33 PM CDT EXAMINATION: XR SPINE LUMBAR 2 OR 3 VIEWS, XR SPINE THORACIC 2 VIEWS HISTORY: Osteoporosis FINDINGS: 2 views of the lumbar spine and 2 views of the thoracic spine are provided for interpretation with comparison made to radiographs dated 06/10/2019. Levoscoliosis of the thoracolumbar spine. No acute compression deformities. Mild degenerative disc disease. No significant spondylolisthesis. Procedure Note Diya Russ MD - 01/25/2025 EXAMINATION: XR SPINE LUMBAR 2 OR 3 VIEWS, XR SPINE THORACIC 2 VIEWS HISTORY: Osteoporosis FINDINGS: 2 views of the lumbar spine and 2 views of the thoracic spine are provided for interpretation with comparison made to radiographs dated 06/10/2019. Levoscoliosis of the thoracolumbar spine. No acute compression deformities. Mild degenerative disc disease. No significant spondylolisthesis. IMPRESSION: 1. No acute compression deformities. 2. Levoscoliosis of the thoracolumbar spine with mild thoracic degenerative disc disease. Dictated by: Prince Orta M.D. The radiology attending physician has personally reviewed this study, and had reviewed and/or edited this written report and agrees with it. Electronically signed by: Diya Russ MD Evelyn Santana MD IMG XR PROCEDURES Final Re sult * eGFR (01/25/2025 2:07 PM CDT) eGFR >90 >=60 mL/min/1. 73 m2 Comment: Interpretive Data Reference Interval Normal >/= 90 mL/min/1.73m2 Mildly decreased* 60 - 89 mL/min/1.73m2 Mildly to moderately decreased 45 - 59 mL/min/1.73m2 Moderately to severely decreased 30 - 44 mL/min/1.73m2 Severely decreased 15 - 29 mL/min/1.73m2 Kidney Failure < 15 mL/min/1.73m2 *Relative to young adult level Estimated glomerular filtration rate is determined by the 2020 CKD-EPI equation recommended by the National Kidney Foundation (A Unifying Approach to GFR Estimation: Recommendations of the NKF-ASK Task Force on Reassessing the Inclusion of Race in Diagnosing Kidney Disease, JASN 2020). The CKD-EPI equation should not be used for patients with unstable renal function and has not been validated in children and those over 70. Current interpretive data was last reviewed 2021. Blood 01/25/2025 2:07 PM CDT 01/25/2025 4:45 PM CDT Evelyn Santana MD LAB BLOOD ORDERABLES Final Result Performing Organization Address [facility] Co de Phone Number [facility] [place] [address] * Vitamin D 25 hydroxy (01/25/2025 2:07 PM CDT) [facility] Vitamin D 25-OH 42 30 - 80 ng/mL Blood 01/25/2025 2:07 PM CDT 01/25/2025 3:59 PM CDT Evelyn Santana MD LAB BLOOD ORDERABLES Final Result Performing Organization Address [facility] Co de Phone Number [facility] Department [place] [address] * Phosphorus (01/25/2025 2:07 PM CDT) [facility] Phosphorus, pl 3.8 2.3 - 4.5 mg/dL Blood 01/25/2025 2:07 PM CDT 01/25/2025 3:59 PM CDT Evelyn Santana MD LAB BLOOD ORDERABLES Final Result Performing Organization Address [facility] [place] [address] * (ABNORMAL) Comprehensive metabolic panel (01/25/2025 2:07 PM CDT) [facility] Sodium 141 135 - 145 mmol/L Potassium, pl 4.5 3.3 - 4.9 mmol/L [facility] Chloride 102 97 - 110 mmol/L [facility] CO2 31 22 - 32 mmol/L [facility] Anion gap 8 2 - 15 mmol/L [facility] BUN 29(H) 6 - 25 mg/dL [facility] Creatinine 0.60 0.60 - 1.10 mg/dL [facility] Glucose 88 70 - 199 mg/dL [facility] Comment: Interpretive Data Fasting glucose >/= 126 mg/dl is diagnostic for diabetes. Fasting is defined as no caloric intake for at least 8 hours. Fasting glucose between 100 mg/dl to 125 mg/dl is diagnostic of prediabetes. In a patient with classic symptoms of hyperglycemia or hyperglycemic crisis, a random glucose >/= 200 mg/dl is diagnostic for diabetes. In the absence of unequivocal hyperglycemia, results should be confirmed by repeat testing. The classification and Diagnosis of Diabetes Diabetes Care 2021; 46: S19-S40. Current interpretive data was last revised 2022. Calcium 9.2 8.5 - 10.3 mg/dL [facility] Bilirubin, total 0.3 0.1 - 1.2 mg/dL [facility] Protein, pl 7.8 6.5 - 8.5 g/dL [facility] Albumin 4.5 3.5 - 5.0 g/dL [facility] Alk phos 61 40 - 130 Units/L [facility] ALT 15 7 - 45 Units/L [facility] AST 18 10 - 45 Units/L [facility] Blood 01/25/2025 2:07 PM CDT 01/25/2025 3:59 PM CDT Evelyn Santana MD LAB BLOOD ORDERABLES Final Result Performing Organization Address City/State/[facility] Co ms Phone Number [facility] Department [place] [address] * Dexa TBS Axial Skeleton Bone Density 1 or more sites (01/25/2025 12:09 PM CDT) Anatomical Region Laterality Modality Wrist, Body N/A Radiographic Suzette ging Narrative 01/25/2025 10:00 PM CDT Patient Name: Kalina Guevara Date of : 1960 Date of scan: 01/25/2025 Bone mineral density was performed on a Artaic Discovery Densitometer. Based on machine cross-calibration and precision studies the least significant changes of this densitometer is 0.024 g/cm2 at the spine, 0.020 g/cm2 at the total proximal femur, and 0.014g/cm2 at the forearm. HISTORY: This is a 64 y.o. postmenopausal female with a history of breast cancer and low bone mass. She reports that she has never smoked. She has been exposed to tobacco smoke. She has never used smokeless tobacco. Currently on treatment with calcium, vitamin D, and denosumab (Prolia) and previously treated with ibandronate (Boniva), zoledronic acid (Reclast), and zoledronic acid (Zometa). INDICATIONS: Menopause status, treatment monitoring, and history of low bone mass. FINDINGS: BONE MINERAL DENSITY OF THE LUMBAR SPINE Bone Mineral Density (BMD) of the lumbar spine was measured from L1-L4 and the average density was calculated to be 0.731 gm/cm2. This corresponds to a T-score (standard deviations from the mean of young adults) of -2.9. There is no previous study available for comparison. BONE MINERAL DENSITY OF THE PROXIMAL FEMUR Bone Mineral Density (BMD) of the left hip total was found to be 0.751 gm/cm2. This corresponds to a T-score standard deviations from the mean of young adults of -1.6. Femoral neck is 0.790 gm/cm2 with a T-score (standard deviations from the mean of young adults) of -0.5. There is no previous study available for comparison. SUMMARY: Bone mineral density shows evidence of osteoporosis and marked increase risk of fracture. The lumbar spine Trabecular Bone Score is 1.300 which suggests partially degraded bone microarchitecture compared to the general population. Final decisions regarding diagnostic or therapeutic recommendations should include BMD, TBS, additional clinical risk factors as well the clinical context of the patient. Please see attached TBS results for further details. ADDITIONAL COMMENTS: Postmenopausal Women and Men Over 50: Diagnostic criteria: Osteoporosis: BMD at or below -2.5 T-score; Osteopenia (low bone mass): BMD between -1.0 and -2.5 T-score. If the patient has a history of a fragility fracture, a fracture that occurred with trauma equivalent to a fall from a standing position or less, then the diagnosis is osteoporosis regardless of bone density. The history and data sections of the bone mineral density scan were prepared by Gail Johnson who is accredited by the International Society of Clinical Densitometry. The overall patient assessment and scan interpretation were performed by Evelyn Santana M.D. who is certified by the International Society of Clinical Densitometry. [id number] Evelyn Santana MD IMG DXA PROCEDURES Final R esult * SCAN - LABS (01/05/2025) Provider Scanning Final Result * Specimen Status Report (01/04/2025 8:10 AM CDT) Specimen Status Report Comment [facility] - 01 Comment: Gina Lucero LP Default Gina Lucero LP Default A hand-written panel/profile was received from your office. In accordance with the [facility] Ambiguous Test Code Policy dated November 2002, we have completed your order by using the closest currently or formerly recognized AMA panel. We have assigned Lipid Panel, Test Code #284305 to this request. If this is not the testing you wished to receive on this specimen, please contact the [facility] Client Inquiry/Technical Services Department to clarify the test order. We appreciate your business. 01/04/2025 8:10 AM CDT 01/04/2025 Narrative [facility] - 01/05/2025 1:07 AM CDT Performed at: [address] [place] [id number] Fire Ranger: Chico Martinez PhD, Phone: [phone] Tata Anderson NP LAB BLOOD ORDERABLES Final Resul t [facility] - * (ABNORMAL) Lipid panel (01/04/2025 8:10 AM CDT) Cholesterol 187 100 - 199 mg/dL [facility] - 01 Triglycerides 107 0 - 149 mg/dL [facility] - 01 HDL Cholesterol 61 >39 mg/dL [facility] - 01 VLDL 19 5 - 40 mg/dL [facility] - 01 LDL, calculated 107(H) 0 - 99 mg/dL [facility] - 01 01/04/2025 8:10 AM CDT 01/04/2025 Narrative [facility] - 01/05/2025 1:07 AM CDT Performed at: 01 - [facility] [address] [id number] Fire Ranger: Chico Martinez PhD, Phone: [phone] us Tata Rater TELEHEALTH NURSE LAB BLOOD ORDERABLES Final Resul t [facility] - 01 from Last 3 Months Insurance [facility] Member Subscriber Plan / Payer (Ef fective 2019-Present) Name:Kalina Guevara Member ID:[id number] Relation to Subscriber:Spouse Name:JARON GUEVARA Subscriber ID:[id number] Date of :1959 (Home) Address: [address] [place] [address] Payer ID:[id number] Type:[employer] HMO/PPO Address: [address] Member Subscriber Plan / Payer (Ef fective 2019-Present) Name:Kalina Guevara Member ID:[id number] Relation to Subscriber:Self Name:Kalina Guevara Subscriber ID:[id number] Payer ID:[id number] Type:[employer] HMO/PPO Address: [address] [employer] [facility] [id number] [employer] Advance Directives For more information, please contact: [phone] * Full Code (Latest Code Status on File) Date Activated Date Inactivated Comments 12/19/2020 7:26 AM 12/19/2020 1:34 PM Care Teams Kiln Door Repairer Relationship Specialty Start Date End Date Flavio Munson DO PCP - General Internal Medicine 08/31/23
--- OUTSIDE RECORDS SUMMARY | 2025-03-22 07:55 | XMS_ITS | Encounter Summary ---
Author Organization [facility] Address [address] [place] [address] Phone Care Team Providers Care Bank Runner Name Role Phone David Cazares MD, Sean Lu Primary Care Provider + Unknown, Notinfile Primary Care Provider Unavail able David Cazares MD, Sean Lu Primary Care Provider + Tg Mills MD Primary Care Provider [phone] Brock Cruz MD Unavailable [phone] Flavio Munson DO Primary Care Provider Encounter Details Date Type Department Care Team (Late st Contact Info) Description 02/10/2017 Orders Only [facility] ProviderAugustine MD [address] [place] [address] Social History Tobacco Use Types Packs/Day Years Used Date Smoking Tobacco: Never Assessed Comments Unknown Sex and Gender Information Value Date Recorded Sex Assigned at Not on file Legal Sex Female 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 us Historical Provider LAB BLOOD ORDERABLES Aimee l Result documented in this encounter Visit Diagnoses Not on filedocumented in this encounter Care Teams Bank Runner Relationship Specialty Start Date End Date Sean Hernandez Jr., MD [address] [place] [address] PCP - General 02/16/17 06/01/17 Unknown, Notinfile PCP - General 06/02/17 06/02/17 Sean Hernandez Jr., MD [address] [place] [address] PCP - General 06/03/17 09/15/17 Tg Mills MD [address] [place] [address] [place] [address] PCP - General 09/16/17 08/30/23 Flavio Munson DO [address] [place] [address] [place] [address] PCP - General Internal Medicine 08/31/23 Brock Cruz MD [address] [place] [address] [place] [address] Consulting Physician Cardiology 05/26/18 09/09/21 documented as of this encounter
--- OUTSIDE RECORDS SUMMARY | 2025-03-22 07:55 | XMS_ITS | Encounter Summary ---
Author Organization [facility] Address [address] [place] [address] Care Team Providers Care Deputy Sheriff Generalist Name Role Phone Earnest Rodriguez MD Primary Care Provider [phone] Encounter Details Date Type Department Care Team (Latest Contact Info) Description 10/03/2021 [employer] Message Enc [facility] Multispecialty Care - [place] [address] [place] [address] [address] [place], [place] [id number] [place] [address] [place] [address] [address] [place], [place] [id number] Fasting for Jean-Pierre Guevara on ThursdayOctober 08 Social History Tobacco Use Types Packs/Day Years [...] on file Legal Sex Female 2:12 PM COMMERCIAL HELICOPTER PILOT Gender Identity Female 07/30/2021 11:15 AM COMMERCIAL HELICOPTER PILOT Sexual Orientation Choose not to disclose 2021 11:15 AM COMMERCIAL HELICOPTER PILOT documented as of this encounter Plan of Treatment Not on file documented as of this encounter Visit Diagnoses Not on filedocumented in this encounter Additional Health Concerns Assessment Noted Time PHQ-9 Depression Total Score: 0 08/01/19 22 8:39 AM COMMERCIAL HELICOPTER PILOT documented as of this encounter Care Teams Deputy Sheriff Generalist Relationship Specialty Start Date End Date Earnest Rodriguez MD [address] [address] PCP - General INTERNAL MEDICINE 07/31/21 documented as of this encounter
--- OUTSIDE RECORDS SUMMARY | 2025-03-22 07:55 | XMS_ITS | Encounter Summary ---
Author Organization [facility] Address [address] [place] [address] Care Team Providers Care Computer Support Technician Name Role Phone Earnest Rodriguez MD Primary Care Provider [phone] Encounter Details Date Type Department Care Team (Latest Contact Info) Description 12/11/2021 Motion[employer]Chart Message Enc [facility] Medical Group Multispecialty Care - [place] [address] [place] [address] [address] [place], [place] [phone] [place] [address] [place] [address] [address] [place], [place] [phone] Too much Vitamin D? Social History Tobacco Use Types Packs/Day Years [...] on file Legal Sex Female 2:12 PM ASSOCIATE PROFESSOR OF THEOLOGY Gender Identity Female 07/30/2021 11:15 AM ASSOCIATE PROFESSOR OF THEOLOGY Sexual Orientation Choose not to disclose 2021 11:15 AM ASSOCIATE PROFESSOR OF THEOLOGY COVID-19 Exposure Response Date Recorded In the last 10 days, have yo u been in contact with someone who was confirmed or suspected to have Coronavirus/COVID-19? No / Unsure 12/13/2021 9:54 AM CDT documented as of this encounter Plan of Treatment Not on file documented as of this encounter Visit Diagnoses Not on filedocumented in this encounter Additional Health Concerns Assessment Noted Time PHQ-9 Depression Total Score: 0 08/01/19 22 8:39 AM ASSOCIATE PROFESSOR OF THEOLOGY documented as of this encounter Care Teams Computer Support Technician Relationship Specialty Start Date End Date Earnest Rodriguez MD [address] [address] PCP - General INTERNAL MEDICINE 07/31/21 documented as of this encounter
--- OUTSIDE RECORDS SUMMARY | 2025-03-22 07:55 | XMS_ITS | Encounter Summary ---
Author Organization [facility] Address [address] [place] [address] Care Team Providers Care Haulage Engine Operator Name Role Phone Earnest Rodriguez MD Primary Care Provider [phone] Encounter Details Date Type Department Care Team (Late st Contact Info) Description 12/11/2021 MyChart Message Enc [facility] Medical Group Multispecialty Care - [place] [address] [place] [address] [address] [place], [place] [phone] [place] [address] [place] [address] [address] [place], [place] [phone] Pap smear info Social History Tobacco Use Types Packs/Day Years [...] on file Legal Sex Female 2:12 PM SMALL WIND ENERGY INSTALLER Gender Identity Female 07/30/2021 11:15 AM SMALL WIND ENERGY INSTALLER Sexual Orientation Choose not to disclose 2021 11:15 AM SMALL WIND ENERGY INSTALLER COVID-19 Exposure Response Date Recorded In the [...] Depression Total Score: 0 08/01/19 8:39 AM SMALL WIND ENERGY INSTALLER documented as of this encounter Care Teams Haulage Engine Operator Relationship Specialty Start Date End Date Earnest Rodriguez MD [address] [address] PCP - General INTERNAL MEDICINE 07/31/21 documented as of this encounter
--- OUTSIDE RECORDS SUMMARY | 2025-03-22 07:55 | XMS_ITS | Encounter Summary ---
Author Organization [facility] Address [address] [place] [address] Phone Care Team Providers Care Community Service Coordinator Name Role Phone Tg Mills MD Primary Care Provider [phone] Brock Cruz MD Unavailable [phone] Flavio Munson DO Primary Care Provider Encounter Details Date Type Department Care Team (Late st Contact Info) Description 12/31/2017 Telephone [facility] Cardiology [address] [facility] Advanced Medicine 8th [place] [address] [place] [address] Brock Cruz MD [address] [place] [address] Social History Tobacco Use Types Packs/Day Years Used Date Smoking Tobacco: Never Smokeless Tobacco: Never Comments Unknown Sex and Gender Information Value Date Recorded Sex Assigned at Not on file Legal Sex Female 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 MACHINE SETTER Gender Identity Not on file Sexual Orientation Not on file documented as of this encounter Plan of Treatment Not on file documented as of this encounter Visit Diagnoses Not on filedocumented in this encounter Care Teams Community Service Coordinator Relationship Specialty Start Date End Date Tg Mills MD [address] [place] [address] [place] [address] PCP - General 09/16/17 08/30/23 Flavio Munson DO [address] [place] [address] [place] [address] PCP - General Internal Medicine 08/31/23 Brock Cruz MD [address] [place] [address] [place] [address] Consulting Physician Cardiology 05/26/18 09/09/21 documented as of this encounter
--- OUTSIDE RECORDS SUMMARY | 2025-03-22 07:55 | XMS_ITS | Encounter Summary ---
Author Organization [facility] Address [address] [place] [address] Care Team Providers Care Planting Machine Operator Name Role Phone Earnest Rodriguez MD Primary Care Provider [phone] Encounter Details Date Type Department Care Team (Latest Contact Info) Description 10/03/2021 Trans[employer]agen Biopharmaceuticalst Message Enc [facility] Medical Group Multispecialty Care - [place] [address] [place] [address] [address] [place], [place] [phone] [place] [address] [place] [address] [address] [place] [address] Fasting before October appointment? Social History Tobacco Use Types Packs/Day Years [...] on file Legal Sex Female 2:12 PM METEOROLOGIST IN CHARGE Gender Identity Female 07/30/2021 11:15 AM METEOROLOGIST IN CHARGE Sexual Orientation Choose not to disclose 2021 11:15 AM METEOROLOGIST IN CHARGE documented as of this encounter Plan of Treatment Not on file documented as of this encounter Visit Diagnoses Not on filedocumented in this encounter Additional Health Concerns Assessment Noted Time PHQ-9 Depression Total Score: 0 08/01/19 22 8:39 AM METEOROLOGIST IN CHARGE documented as of this encounter Care Teams Planting Machine Operator Relationship Specialty Start Date End Date Earnest Rodriguez MD [address] [address] PCP - General INTERNAL MEDICINE 07/31/21 documented as of this encounter
--- OUTSIDE RECORDS SUMMARY | 2025-03-22 07:55 | XMS_ITS | Encounter Summary ---
Author Organization [facility] Address [address] [place] [address] Care Team Providers Care Boatbuilder Wood Name Role Phone Earnest Rodriguez MD Primary Care Provider [phone] Encounter Details Date Type Department Care Team (Latest Contact Info) Description 10/30/[address] [employer] Message Enc [facility] Medical Group Multispecialty Care - [place] [address] [place] [address] [address] [place], [place] [phone] [place] [address] [place] [address] [address] [place], [place] [phone] Calcium and D meds Social History Tobacco Use Types Packs/Day Years [...] on file Legal Sex Female 2:12 PM NICKER Gender Identity Female 07/30/2021 11:15 AM NICKER Sexual Orientation Choose not to disclose 2021 11:15 AM NICKER COVID-19 Exposure Response Date Recorded In the last 10 days, have yo u been in contact with someone who was confirmed or suspected to have Coronavirus/COVID-19? No / Unsure 10/30/2021 8:01 AM CDT documented as of this encounter Plan of Treatment Not on file documented as of this encounter Visit Diagnoses Not on filedocumented in this encounter Additional Health Concerns Assessment Noted Time PHQ-9 Depression Total Score: 0 08/01/19 22 8:39 AM NICKER documented as of this encounter Care Teams Boatbuilder Wood Relationship Specialty Start Date End Date Earnest Rodriguez MD [address] [address] PCP - General INTERNAL MEDICINE 07/31/21 documented as of this encounter
--- OUTSIDE RECORDS SUMMARY | 2025-03-22 07:55 | XMS_ITS | Encounter Summary ---
Author Organization [facility] Address [address] [place] [address] Care Team Providers Care Destination Specialist Name Role Phone Earnest Rodriguez MD Primary Care Provider [phone] Encounter Details Date Type Department Care Team (Latest Contact Info) Description 12/13/2021 Aquacuehart Message Enc [facility] Medical Group Multispecialty Care - [place] [address] [place] [address] [address] [place], [place] [phone] [place] [address] [place] [address] [address] [place], [place] [phone] Meds going forward Social History Tobacco Use Types Packs/Day Years [...] on file Legal Sex Female 2:12 PM OIL LABORATORY ANALYST Gender Identity Female 07/30/2021 11:15 AM OIL LABORATORY ANALYST Sexual Orientation Choose not to disclose 2021 11:15 AM OIL LABORATORY ANALYST COVID-19 Exposure Response Date Recorded In the [...] Depression Total Score: 0 08/01/19 8:39 AM OIL LABORATORY ANALYST documented as of this encounter Care Teams Destination Specialist Relationship Specialty Start Date End Date Earnest Rodriguez MD [address] [address] PCP - General INTERNAL MEDICINE 07/31/21 documented as of this encounter
--- OUTSIDE RECORDS SUMMARY | 2025-03-22 07:55 | XMS_ITS | Encounter Summary ---
Author Organization [facility] Address [address] [place] [address] Care Team Providers Care Marketing Operations Manager Name Role Phone Earnest Rodriguez MD Primary Care Provider [phone] Encounter Details Date Type Department Care Team (Latest Contact Info) Description 10/08/2021 Plinkt Message Enc [facility] Medical Group Multispecialty Care - [place] [address] [place] [address] [address] [place], [place] [phone] [place] [address] [place] [address] [address] [place], [place] [phone] Jean-Pierre's visit today Social History Tobacco Use Types Packs/Day Years [...] on file Legal Sex Female 2:12 PM MAINFRAME CONSULTANT Gender Identity Female 07/30/2021 11:15 AM MAINFRAME CONSULTANT Sexual Orientation Choose not to disclose 2021 11:15 AM MAINFRAME CONSULTANT documented as of this encounter Plan of Treatment Not on file documented as of this encounter Visit Diagnoses Not on filedocumented in this encounter Additional Health Concerns Assessment Noted Time PHQ-9 Depression Total Score: 0 08/01/19 22 8:39 AM MAINFRAME CONSULTANT documented as of this encounter Care Teams Marketing Operations Manager Relationship Specialty Start Date End Date Earnest Rodriguez MD [address] [address] PCP - General INTERNAL MEDICINE 07/31/21 documented as of this encounter
== END 2025-03-22 07:50 | disposition home or self-care (01) ==
LOC: ANHAUDASC 07:50
PROVIDERS: PCP Internal Medicine; Visit Provider Otolaryngology
DX: H90.6 Mixed conductive and sensorineural hearing loss, bilateral (principal); H93.13 Tinnitus, bilateral; H74.01 Tympanosclerosis, right ear; H93.8X3 Other specified disorders of ear, bilateral
CPT/HCPCS: 92557; 92567